=== PATIENT | male | born 1960 | race Caucasian/White ===

== ENCOUNTER 2016-07-11 10:32 | Emergency (ER) | payer SELFPAY ==
[~2016-07-11] VITALS: Ht 190.5 cm; Wt 125.0 kg
[~2016-07-11 10:32] MED LIST: GLIP10TA6 PO; LISI-363 PO; LOPI600T PO; METF1000 PO
[2016-07-11 10:34] VITALS: BP 162/88; PULSE 102; RESP 20; TEMP 98; O2SAT 93
[2016-07-11] MEDS ORDERED: SODIUM CHLOR 0.9% 1000 ML INJ 1,000 ML IV SCH (10:57)
[2016-07-11] MEDS ORDERED: SODIUM CHLORIDE 0.9% FLUSH 5 ML FLUSH IVF PRN (11:00)
[2016-07-11] MEDS ORDERED: ONDANSETRON HCL 4 MG/2 ML VIAL IVP ONE (11:00)
--- NOTE | 2016-07-11 11:07 | PD ---
HPI Chief Complaint: GI Complaint Time Seen by Provider: 11:02 Travel History International Travel<30 days: No Contact w/Intl Traveler<30days: No Traveled to known affect area: No History of Present Illness HPI 56-year-old female with history of diabetes, presents to the ER today for 1 week history of intermittent nausea, vomiting, worsens with eating. He states he is also having multiple episodes of diarrhea. He denies any black stools, but has noticed some flecks of blood in his vomit. He denies any fevers, abdominal pains, or any other symptoms. Modifying Factors: Worse with eating Associated Signs & Symptoms: Nausea, vomiting, diarrhea Risk Factors: None PFSH Past Medical History Hx Anticoagulant Therapy: No Cardiovascular Problems: No Chemotherapy: No Cerebrovascular Accident: No Diabetes: Yes (DM TYPE II) Diminished Hearing: No Respiratory: No Social History Alcohol Use: Yes (SOCIALLY BEER) Tobacco Use: Yes (05/04 PPD) Substance Use: No Allergies-Medications (Allergen,Severity, Reaction): Coded Allergies: No Known Allergies (Verified , 07/11/16) Reported Meds & Prescriptions Reported Meds & Active Scripts Active Active Prescriptions or Reported Medications Unobtainable Review of Systems Except as stated in HPI: all other systems reviewed are Neg Physical Exam Narrative GENERAL: Middle age white male patient, well appearing, not in acute distress. Awake and oriented 3. SKIN: Warm and dry. HEAD: Atraumatic. Normocephalic. EYES: Pupils equal and round. No scleral icterus. No injection or drainage. ENT: No nasal bleeding or discharge. Mucous membranes pink and moist. NECK: Trachea midline. No JVD. CARDIOVASCULAR: Regular rate and rhythm. No murmur appreciated. RESPIRATORY: No accessory muscle use. Clear to auscultation. Breath sounds equal bilaterally. GASTROINTESTINAL: Abdomen soft, non-tender, nondistended. Hepatic and splenic margins not palpable. MUSCULOSKELETAL: No obvious deformities. No clubbing. No cyanosis. No edema. NEUROLOGICAL: Awake and alert. No obvious cranial nerve deficits. Motor grossly within normal limits. Normal speech. PSYCHIATRIC: Appropriate mood and affect; insight and judgment normal. Data Data Last Documented VS Vital Signs Date Time Temp Pulse Resp B/P Pulse Ox O2 Delivery O2 Flow Rate FiO2 07/11/16 12:41 79 18 139/74 99 Room Air 07/11/16 10:34 98.0 Orders Complete Blood Count With Diff (07/11/16 10:57) Comprehensive Metabolic Panel (07/11/16 10:57) Lipase (07/11/16 10:57) Urinalysis - C+S If Indicated (07/11/16 10:57) Iv Access Insert/Monitor (07/11/16 10:57) Ecg Monitoring (07/11/16 10:57) Oximetry (07/11/16 10:57) Ondansetron Inj (Zofran Inj) (07/11/16 11:00) Sodium Chlor 0.9% 1000 Ml Inj (Ns 1000 M (07/11/16 10:57) Sodium Chloride 0.9% Flush (Ns Flush) (07/11/16 11:00) Ct Abd/Pel W Iv Contrast(Rout) (07/11/16 11:02) Insulin Human Regular Inj (Novolin R Inj (07/11/16 12:15) Iohexol 350 Inj (Omnipaque 350 Inj) (07/11/16 13:24) Labs Laboratory Tests Test 07/11/16 07/11/16 11:25 11:45 White Blood Count 10.3 TH/MM3 Red Blood Count 4.95 MIL/MM3 Hemoglobin 14.3 GM/DL Hematocrit 41.9 % Mean Corpuscular Volume 84.7 FL Mean Corpuscular Hemoglobin 29.0 PG Mean Corpuscular Hemoglobin 34.2 % Concent Red Cell Distribution Width 13.3 % Platelet Count 244 TH/MM3 Mean Platelet Volume 10.4 FL Neutrophils (%) (Auto) 69.9 % Lymphocytes (%) (Auto) 18.5 % Monocytes (%) (Auto) 9.9 % Eosinophils (%) (Auto) 0.7 % Basophils (%) (Auto) 1.0 % Neutrophils # (Auto) 7.2 TH/MM3 Lymphocytes # (Auto) 1.9 TH/MM3 Monocytes # (Auto) 1.0 TH/MM3 Eosinophils # (Auto) 0.1 TH/MM3 Basophils # (Auto) 0.1 TH/MM3 CBC Comment DIFF FINAL Differential Comment Sodium Level 131 MEQ/L Potassium Level 4.4 MEQ/L Chloride Level 94 MEQ/L Carbon Dioxide Level 23.0 MEQ/L Anion Gap 14 MEQ/L Blood Urea Nitrogen 29 MG/DL Creatinine 1.41 MG/DL Estimat Glomerular Filtration 52 ML/MIN Rate Random Glucose 417 MG/DL Calcium Level 9.7 MG/DL Total Bilirubin 0.4 MG/DL Aspartate Amino Transf 57 U/L (AST/SGOT) Alanine Aminotransferase 81 U/L (ALT/SGPT) Alkaline Phosphatase 66 U/L Total Protein 7.9 GM/DL Albumin 3.9 GM/DL Lipase 181 U/L Urine Color LIGHT-YELLOW Urine Turbidity CLEAR Urine pH 5.0 Urine Specific [place] 1.028 Urine Protein NEG mg/dL Urine Glucose (UA) 1000 mg/dL Urine Ketones 10 mg/dL Urine Occult Blood NEG Urine Nitrite NEG Urine Bilirubin NEG Urine Urobilinogen LESS THAN 2.0 MG/DL Urine Leukocyte Esterase NEG Urine RBC LESS THAN 1 /hpf Urine WBC LESS THAN 1 /hpf Microscopic Urinalysis Comment CULT NOT INDICATED MDM Medical Decision Making Medical Screen Exam Complete: Yes Emergency Medical Condition: Yes Medical Record Reviewed: Yes Interpretation(s) Laboratory Tests Test 07/11/16 07/11/16 11:25 11:45 Monocytes (%) (Auto) 9.9 % (0.0-8.0) Monocytes # (Auto) 1.0 TH/MM3 (0-0.9) Sodium Level 131 MEQ/L (136-145) Chloride Level 94 MEQ/L (98-107) Blood Urea Nitrogen 29 MG/DL (7-18) Creatinine 1.41 MG/DL (0.60-1.30) Estimat Glomerular Filtration 52 ML/MIN (>89) Rate Random Glucose 417 MG/DL (74-106) Aspartate Amino Transf 57 U/L (15-37) (AST/SGOT) Alanine Aminotransferase 81 U/L (12-78) (ALT/SGPT) Urine Glucose (UA) 1000 mg/dL (NEG) Urine Ketones 10 mg/dL (NEG) Differential Diagnosis Cholecystitis versus obstruction versus gastroenteritis versus dehydration versus metabolic issues Narrative Course Lab work shows significant hyperglycemia and IV fluids plus Zofran and insulin was given in the ER. On reevaluation at 10:45 PM, his blood sugars have come down from 400-200. CAT scan did not show any signs of acute intra-abdominal processes. At this point, my plan would be to release him with follow-up to primary care physician in order to address his hyperglycemia, he should do his blood sugar check several times a day, return for any worsening and glucose elevation. He should return for any worsening in vomiting, abdominal pain, and as needed. The plan has been discussed with him and he states understanding. Diagnosis Primary Impression: HYPERGLYCEMIA, UNSPECIFIED Med/Other Pt SpecificInfo: Prescription(s) given Scripts Ondansetron Odt (Zofran Odt)4 Mg Tab4 Mg SL Q6HR PRN (Nausea/Vomiting) #7 TAB Ref 0 Prov:Sydney Garcia MD 07/11/16 Disposition: 01 DISCHARGE HOME Condition: Stable Sydney Garcia MD Jul 11, 2016 11:06
[2016-07-11] MEDS ORDERED: METF500T PO (11:12)
[2016-07-11 11:39] LABS: AUTOMATED NEUTROPHIL # 7.2 TH/MM3 (1.8-7.7); BASOPHIL # 0.1 TH/MM3 (0-0.2); EOSINOPHIL # 0.1 TH/MM3 (0-0.4); EOSINOPHIL % 0.7 % (0.0-4.0); HEMATOCRIT 41.9 % (39.0-51.0); HEMO FLAGS DIFF FINAL; LYMPH % 18.5 % (9.0-44.0); LYMPHOCYTE # 1.9 TH/MM3 (1.0-4.8); MEAN CELL VOLUME 84.7 FL (80.0-100.0); MEAN CORPUSCULAR HGB CONC 34.2 % (32.0-36.0); MONO % 9.9 % (0.0-8.0); NEUT % 69.9 % (16.0-70.0); PLATELET COUNT 244 TH/MM3 (150-450); RED BLOOD COUNT 4.95 MIL/MM3 (4.50-5.90); RED CELL DISTRIBUTION WIDTH 13.3 % (11.6-17.2); WHITE BLOOD COUNT 10.3 TH/MM3 (4.0-11.0)
[2016-07-11 11:59] LABS: BLOOD, URINE NEG (NEG); COMMENT (UR) CULT NOT INDICATED; CULTURE IF INDICATED CULT NOT INDICATED; GLUCOSE,URINE 1000 mg/dL (NEG); KETONE, URINE 10 mg/dL (NEG); NITRITE,URINE NEG (NEG); URINE COLOR LIGHT-YELLOW (YELLW/STRAW)
[2016-07-11 12:00] LABS: BLOOD UREA NITROGEN 29 MG/DL (7-18); GLOMERULAR FILTRATION RATE 52 ML/MIN (>89)
[2016-07-11 12:01] LABS: ALKALINE PHOSPHATASE 66 U/L (45-117); ALT (GPT) 81 U/L (12-78); ANION GAP 14 MEQ/L (5-15); AST (GOT) 57 U/L (15-37); CHLORIDE 94 MEQ/L (98-107); POTASSIUM 4.4 MEQ/L (3.5-5.1); SODIUM (NA) 131 MEQ/L (136-145); TOTAL BILIRUBIN ADULT 0.4 MG/DL (0.2-1.0)
[2016-07-11] MEDS ORDERED: INSULIN HUMAN REGULAR 1,000 UNITS/10 ML VIAL IV PUSH ONE (12:15)
[2016-07-11 12:41] VITALS: BP 139/74; PULSE 79; RESP 18; O2SAT 99
[2016-07-11] MEDS ORDERED: IOHEXOL 350 MG/ML 10 ML VIAL (for RAD DIAG) IV ONE (13:24)
--- NOTE | 2016-07-11 13:47 | RADRPT ---
EXAM DATE/TIME: 07/11/2016 13:04 [facility] COMPARISON: No previous studies available for comparison. INDICATIONS : Nausea, vomiting and diarrhea for one week. IV CONTRAST: 75 cc Omnipaque 350 (iohexol) IV ORAL CONTRAST: No oral contrast ingested. RADIATION DOSE: 21.13 CTDIvol (mGy) MEDICAL HISTORY : Diabetes mellitus type 2. SURGICAL HISTORY : None. ENCOUNTER: Initial ACUITY: 1 week PAIN SCALE: 0/10 LOCATION: Abdomen TECHNIQUE: Volumetric scanning of the abdomen and pelvis was performed. Using automated exposure control and adjustment of the mA and/or kV according to patient size, radiation dose was kept as low as reasonably achievable to obtain optimal diagnostic quality images. FINDINGS: There is diffuse fatty infiltration of the liver. No focal hepatic lesions are seen. The spleen, pa ncreas, adrenal glands and kidneys are normal. The aorta is intact. The pelvic structures appear gr ossly intact. There are scattered colonic diverticula especially in the sigmoid region. Significant inflammatory change is not seen. The lung bases are clear. There is degenerative change in the lowe r lumbar spine. CONCLUSION: 1. Scattered colonic diverticula in the sigmoid region without inflammatory change. 2. Degenerative change at the lower lumbar spine. Tanner Sutherland MD on July 11, 2016 at 13:39 Board Certified Radiologist. This report was verified electronically.
[2016-07-11] MEDS ORDERED: ZOFR4TAB3 SL (13:57)
[2016-07-15] MEDS ORDERED: METF1000 PO ×2 (08:47→09:15)
[2016-07-15] MEDS ORDERED: LISI-515 PO ×2 (08:47→09:15)
[2016-07-15] MEDS ORDERED: GLIP10TA6 PO ×3 (08:47→09:21)
[2016-07-15] MEDS ORDERED: GEMF600T PO ×2 (08:47→09:15)
[2016-07-15] MEDS ORDERED: REGL5TAB PO (09:21)
[2016-07-15] MEDS ORDERED: CARB6.5S5 RIGHT EAR (09:25)
[2016-07-20] MEDS ORDERED: GLIP10TA6 PO (15:20)
[2016-10-14] MEDS ORDERED: METF1000 PO (09:21)
[2016-10-14] MEDS ORDERED: LISI-515 PO (09:21)
[2016-10-14] MEDS ORDERED: GEMF600T PO (09:21)
[2016-10-14] MEDS ORDERED: GLIP10TA6 PO (09:21)
[2016-10-19] MEDS ORDERED: GEMF600T PO (09:40)
[2016-10-21] MEDS ORDERED: REGL5TAB PO (11:05)
[2016-10-21] MEDS ORDERED: GLIP10TA6 PO (11:05)
[2016-10-21] MEDS ORDERED: METF1000 PO (11:05)
[2016-10-21] MEDS ORDERED: LISI-515 PO (11:05)
[2016-10-21] MEDS ORDERED: GEMF600T PO (11:05)
== END 2016-07-11 14:02 | disposition home or self-care (01) ==
LOC: NEPC 10:32
DX: E11.65 Type 2 diabetes mellitus with hyperglycemia (principal); F17.210 Nicotine dependence, cigarettes, uncomplicated; Z79.4 Long term (current) use of insulin
CPT/HCPCS: 74177; 80053; 81001; 83690; 85025; 96361; 96374; 96375; 99284; J1815; J2405; J7030; Q9967